=== PATIENT | male | born 1995 ===

== ENCOUNTER 2020-12-11 11:36 | Emergency (ER) | payer BC, OTHER ==
[~2020-12-11] VITALS: Ht 175.3 cm; Wt 72.6 kg
[2020-12-11] MEDS ORDERED: CYCL10 PO (13:36)
[2020-12-11] MEDS ORDERED: Norco 5-325 Ta1 EACH PO ×2 (13:36→13:42)
== END 2020-12-11 13:52 | disposition home or self-care (01) ==
LOC: ER 11:36
DX: M54.5 Low back pain (principal); X50.1XXA Overexertion from prolonged static or awkward postures, initial encounter
CPT/HCPCS: 72100; 99284-25; A9270